=== PATIENT | male | born 1955 | race Caucasian/White ===

== ENCOUNTER 2016-06-23 12:37 | Inpatient (IN) | payer BC ==
[~2016-06-23] VITALS: Ht 190.5 cm; Wt 108.4 kg
[~2016-06-23 12:37] MED LIST: Ascorbic Acid,Ester- PO; COLON HEALTH PROBIOT PO; Cod Liver Oil PO; Ecotrin PO; NITROSTAT0.4 MG SL; OMEGA 3-6-91200 MG PO; PREVACID30 MG PO; Theragran-M,Centrum, PO
[2016-06-23 13:15] LABS: EOSINOPHIL COUNT 0.1 K/uL (0-0.3); HEMATOCRIT 41.3 % (38.0-50.0); IMMATURE GRANULOCYTE (%) 0.7 % (0.0-0.7); IMMATURE GRANULOCYTE COUNT 0.4 K/uL; MCH 32.7 PG (29.0-34.0); MCHC 34.9 G/DL (30.0-36.0); MCV 93.9 FL (86-99); MEAN PLAT.VOLUME 10.8 uM^3 (9.0-12.4); MONOCYTE (%) 8.7 % (3-12); MONOCYTE COUNT 0.5 K/uL (0-0.8); NEUTROPHIL COUNT 2.3 K/uL (1.8-6.4); PLATELET COUNT 221 K/uL (156-360); RBC DIS.WIDTH-CV 13.5 % (11.8-14.6); RBC DIS.WIDTH-SD 44.4 % (39-53)
[2016-06-23 13:26] LABS: CHLORIDE 107 mEq/L (99-109)
[2016-06-23 13:27] LABS: POTASSIUM 3.9 mEq/L (3.7-5.4); SODIUM 140 mEq/L (136-147)
[2016-06-23 13:28] LABS: GLUCOSE 86 mg/dL (70-99)
[2016-06-23 13:30] LABS: ANION GAP 8 MEQ/L (2-14)
[2016-06-23 13:32] LABS: GFR ESTIMATE (CALCULATED) > 59 mL/min/
[2016-06-23 13:33] LABS: UREA NITROGEN (BUN) 15 mg/dL (9-23)
[2016-06-23 13:34] LABS: TROP-I INTERPRETATION NEGATIVE; TROPONIN-I < 0.01 ng/mL (0.0-0.30)
[2016-06-23 13:48] LABS: PTT 27.1 (25-32)
[2016-06-23] MEDS ORDERED: AMLODIPINE BES2.5 MG PO (15:23)
[2016-06-23] MEDS ORDERED: ASPIR-LOW81 MG PO (15:24)
[2016-06-23] MEDS ORDERED: ASCORBIC ACID500 M3 PO (15:25)
[2016-06-23] MEDS ORDERED: MEN'S MULTI-VI1 EACH PO (15:25)
[2016-06-23] MEDS ORDERED: FISH OIL 1,4001 EACH PO (15:26)
[2016-06-23] MEDS ORDERED: RED YEAST RICE600 M1 PO (15:26)
[2016-06-23] MEDS ORDERED: COD LIVER OIL1 EACH PO (15:26)
[2016-06-23 20:12] LABS: TROP-I INTERPRETATION NEGATIVE; TROPONIN-I 0.01 ng/mL (0.0-0.30)
[2016-06-24 04:00] VITALS: BP 123/82
[2016-06-24 07:50] LABS: HDL CHOLESTEROL 25 MG/DL (Desirable>=40); NON-HDL CHOLESTEROL 234 mg/dL (Desirable<160); TOTAL CHOLESTEROL 259 mg/dL (Desirable<200); TRIGLYCERIDES 676 MG/DL (Normal: <150)
[2016-06-24 07:58] LABS: Estimated Average Glucose 128 mg/dL (70-123); HEMOGLOBIN A1c (GLYCOHEMOGLOB) 6.1 % HGB (Below 5.7)
[2016-06-24 08:42] LABS: TROP-I INTERPRETATION NEGATIVE; TROPONIN-I < 0.01 ng/mL (0.0-0.30)
[2016-06-24 09:14] VITALS: BP 148/88
[2016-06-24 11:30] VITALS: BP 139/76
[2016-06-24 16:09] VITALS: BP 142/87
[2016-06-24 19:59] VITALS: BP 143/89
[2016-06-24 23:45] VITALS: BP 148/87
[2016-06-25 04:49] VITALS: BP 120/76
[2016-06-25 06:00] LABS: HEMATOCRIT 42.8 % (38.0-50.0); MCH 32.5 PG (29.0-34.0); MCHC 34.3 G/DL (30.0-36.0); MCV 94.7 FL (86-99); MEAN PLAT.VOLUME 11.5 uM^3 (9.0-12.4); PLATELET COUNT 213 K/uL (156-360); RBC DIS.WIDTH-CV 13.6 % (11.8-14.6); RBC DIS.WIDTH-SD 46.8 % (39-53); RED BLOOD COUNT 4.52 M/uL (4.00-5.50); WHITE BLOOD COUNT 7.4 K/uL (4.1-10.2)
[2016-06-25 06:26] LABS: ANION GAP 9 MEQ/L (2-14); CHLORIDE 103 MEQ/L (99-109); GFR ESTIMATE (CALCULATED) > 59 mL/min/; GLUCOSE 94 mg/dL (70-99); SAMPLE HEMOLYSIS CHECK 0; SAMPLE ICTERIC CHECK 0; SAMPLE LIPEMIA CHECK 0; SODIUM 139 MEQ/L (136-147); UREA NITROGEN (BUN) 13 mg/dL (9-23)
[2016-06-25 07:49] VITALS: BP 142/89
[2016-06-25] MEDS ORDERED: ATORVASTATIN CA40 MG PO (10:18)
[2016-06-25] MEDS ORDERED: KLONOPIN0.5 M1 PO (10:18)
== END 2016-06-25 12:11 | disposition home or self-care (01) | DRG 69 ==
LOC: EME 12:37 → EDOF 16:04 → 4SOUTH 16:22
PROVIDERS: Emergency Medicine; Internal Medicine; Nurse Practitioner Family
DX: G45.9 Transient cerebral ischemic attack, unspecified (principal); M48.02 Spinal stenosis, cervical region; I10 Essential (primary) hypertension; K22.4 Dyskinesia of esophagus; E78.1 Pure hyperglyceridemia; Z86.73 Personal history of transient ischemic attack (TIA), and cerebral infarction without residual deficits
CPT/HCPCS: 70450; 70551; 71010; 72141; 80048; 80061; 82607; 83036; 84443; 84484; 85025; 85027; 85610; 85730; 93005; 93306; 93880; 99281; 99285; J1650

== ENCOUNTER → 2016-07-20 | Outpatient (CLI) | payer BC ==
[~2016-07-20] MED LIST changes: +AMLODIPINE BES2.5 MG PO; +ASCORBIC ACID500 M3 PO; +ASPIR-LOW81 MG PO; +ATORVASTATIN CA40 MG PO; +COD LIVER OIL1 EACH PO; +FISH OIL 1,4001 EACH PO; +KLONOPIN0.5 M1 PO; +MEN'S MULTI-VI1 EACH PO; +RED YEAST RICE600 M1 PO
== END | disposition home or self-care (01) ==
LOC: EEG 08:44
DX: R56.9 Unspecified convulsions (principal)
CPT/HCPCS: 95819